=== PATIENT | female | born 1955 | race Caucasian/White ===

== ENCOUNTER 2017-02-08 08:52 | Observation (INO) | payer OTHER, SELFPAY ==
[2017-02-08 09:57] LABS: #Eosinphils 0.2 thou/uL (0.0-0.7); #Lymphocytes 1.1 thou/uL (1.20-3.40); #Monocytes 0.5 thou/uL (0.11-0.59); %Basophils 0.7 % (0.0-1.0); %Eosinophils 3.5 % (0.0-10.0); %Lymphocytes 16.1 % (21.0-51.0); Hematocrit 47.9 % (36.0-47.0); Mean Platelet Volume 8.3 fL (7.4-10.4); Red Blood Cell (RBC) Count 5.32 mill/uL (4.20-5.40); White Blood Cell (WBC) Count 6.9 thou/uL (4.8-10.8)
[2017-02-08 10:00] LABS: Bilirubin Negative (Negative); Blood, Urine Negative (Negative); Glucose, Urine (Dipstick) Negative (Negative); Ketone, Urine Negative (Negative); Nitrite Negative (Negative); Protein, Urine (Dipstick) Negative (Neg-Trace); Urobilinogen 0.2 mg/dL (0.2-1.0)
--- NOTE | 2017-02-08 10:47 | RAD ---
KUB AND UPRIGHT: Date: 02/08/17 HISTORY: Abdominal pain. History of umbilical hernia. FINDINGS: The bowel gas pattern appears nonobstructive. No signs of free air. Surgical clips are seen in the ri ght upper quadrant of the abdomen. PA CHEST: Heart size is borderline. The aorta is tortuous. The lungs are clear of infiltrates. Arthritic changes of the spine and mild scoliosis are noted. IMPRESSION: No acute findings. POS: LOVELY
[2017-02-08 11:45] LABS: ALT (SGPT) 15 U/L (8-55); AST (SGOT) 16 U/L (5-34); Alkaline Phosphatase 70 U/L (40-150); Anion Gap 12 mmol/L (10-20); BUN (Urea Nitrogen) 13 mg/dL (9.8-20.1); Bilirubin, Total 0.6 mg/dL (0.2-1.2); Calc. Creatinine Clearance 0 mL/min (70-130); Calcium 9.7 mg/dL (7.8-10.44); Carbon Dioxide 27 mmol/L (22-29); Chloride 105 mmol/L (98-107); Estimated GFR-MDRD Greater than 90; Globulin 2.8 g/dL (2.4-3.5); Lipase 34 U/L (8-78); Protein, Total 6.7 g/dL (6.0-8.3)
[2017-02-08] MEDS ORDERED: Bupivacaine/Epinephrine 0.25% 30 ML VIAL ONE (16:10)
[2017-02-08] MEDS ORDERED: Fentanyl 250 MCG/5 ML VIAL ONE (16:13)
[2017-02-08] MEDS ORDERED: CEFAZOLIN/Water 2 GM/20 ML SYRINGE ONE (16:26)
[2017-02-08] MEDS ORDERED: Ketorolac Tromethamine 30 MG/ML VIAL ONE (16:42)
[2017-02-08] MEDS ORDERED: Lidocaine 2% PF 10 ML AMP (For Epidural Use) ONE (16:42)
[2017-02-08] MEDS ORDERED: Ondansetron HCl/PF 4 MG/2 ML Vial ONE (16:42)
[2017-02-08] MEDS ORDERED: Propofol 200 MG/20 ML VIAL ONE (16:42)
[2017-02-08] MEDS ORDERED: Dexamethasone 20 MG/5 ML VIAL ONE (16:42)
[2017-02-08] MEDS ORDERED: Glycopyrrolate 0.2 MG/ML 5 ML SYRINGE ONE (16:42)
[2017-02-08] MEDS ORDERED: ePHEDrine/0.9% NaCl/PF SYRINGE 50 mg/10 ml ONE (16:42)
[2017-02-08] MEDS ORDERED: Fentanyl 100 MCG/2 ML VIAL ONE ×3 (18:47→20:14)
[2017-02-08] MEDS ORDERED: SUGAMMADEX SODIUM 500 MG/5 ML VIAL ONE (19:25)
[2017-02-08] MEDS ORDERED: D5 1/2 NS w/20 mEq KCL 1,000 ML ONE (20:15)
[2017-02-08] MEDS ORDERED: Promethazine HCl 25 MG/ML VIAL IM PRN ×2 (20:54→21:08)
[2017-02-08] MEDS ORDERED: Promethazine HCl 25 MG/ML VIAL SLOW IVP PRN (20:54)
[2017-02-08] MEDS ORDERED: Ondansetron HCl/PF 4 MG/2 ML Vial IVP PRN ×2 (20:54→21:08)
[2017-02-08] MEDS ORDERED: Ketorolac Tromethamine 30 MG/ML VIAL IVP PRN (21:08)
[2017-02-08] MEDS ORDERED: D5 1/2 NS w/20 mEq KCL 1,000 ML IV SCH (21:08)
[2017-02-08] MEDS ORDERED: hydrALAZINE 20 MG/ML VIAL SLOW IVP PRN (21:08)
[2017-02-08] MEDS ORDERED: Dextrose 5% in Water 1,000 ML IV PRN (21:08)
[2017-02-08] MEDS ORDERED: HYDROcodone/Acetaminophen 10/325 mg Tablet PO PRN (21:08)
[2017-02-08] MEDS ORDERED: Morphine 4 MG/ML VIAL SLOW IVP PRN ×2 (21:08)
[2017-02-08] MEDS ORDERED: Dextrose 50% Abboject 50 ML SYRINGE SLOW IVP PRN (21:08)
[2017-02-08] MEDS: Famotidine/PF 20 mg/2ml Vial SLOW IVP SCH (22:04)
[2017-02-08 23:39] VITALS: BMI 46.7
[2017-02-09] MEDS ORDERED: Lisinopril 20 MG TAB PO SCH ×2 (00:01→21:00)
[2017-02-09] MEDS ORDERED: traZODone HCl 50 MG TAB PO PRN (00:11)
[2017-02-09] MEDS: HYDROcodone/Acetaminophen 10/325 mg Tablet PO PRN ×2 (03:09→12:43)
[2017-02-09 05:08] LABS: #Lymphocytes 0.6 thou/uL (1.20-3.40); #Monocytes 0.3 thou/uL (0.11-0.59); #Neutrophils 10.1 thou/uL (1.40-6.50); %Eosinophils 0.2 % (0.0-10.0); %Lymphocytes 5.1 % (21.0-51.0); Hematocrit 47.3 % (36.0-47.0); Mean Platelet Volume 8.3 fL (7.4-10.4)
[2017-02-09 05:14] LABS: Anion Gap 12 mmol/L (10-20); BUN (Urea Nitrogen) 11 mg/dL (9.8-20.1); Calc. Creatinine Clearance 153 mL/min (70-130); Calcium 9.4 mg/dL (7.8-10.44); Carbon Dioxide 27 mmol/L (22-29); Chloride 104 mmol/L (98-107); Estimated GFR-MDRD Greater than 90
[2017-02-09] MEDS: Famotidine/PF 20 mg/2ml Vial SLOW IVP SCH (08:21)
[2017-02-09] MEDS ORDERED: FLUoxetine HCl 20 MG CAP PO SCH (09:00)
[2017-02-09] MEDS ORDERED: Enoxaparin Sodium 40 MG/0.4 ML SYRINGE SC SCH (09:00)
[2017-02-09 12:49] VITALS: BP 124/82; TEMP 98.1
[2017-02-09] MEDS ORDERED: Famotidine 20 MG TAB PO SCH (21:00)
--- NOTE | 2017-02-11 11:22 | DIS ---
DATE OF ADMISSION: 02/08/2017 DATE OF DISCHARGE: 02/09/2017 ADMIT DIAGNOSIS: Incarcerated incisional hernia. DISCHARGE DIAGNOSIS: Incarcerated incisional hernia. PROCEDURES: Laparoscopic Da Ronaldo incisional hernia repair with mesh by Dr. Garrett without complica tion. CONDITION AT DISCHARGE: Improved. STAFF: Dr. Ramón Garrett. HOSPITAL COURSE: See hospital chart for details of hospitalization. The patient will follow up with me in 2 weeks.
--- NOTE | 2017-02-11 11:22 | OP ---
DATE OF PROCEDURE: 03/07/2017 PREOPERATIVE DIAGNOSIS: Incarcerated incisional hernia. POSTOPERATIVE DIAGNOSIS: Incarcerated incisional hernia. PROCEDURE: Laparoscopic da Ronaldo assisted incisional hernia repair with mesh. SURGEON: Ramón Garrett M.D. ANESTHESIA: General. ESTIMATED BLOOD LOSS: Minimal. COMPLICATIONS: None. FINDINGS: Significant inflammatory change and adhesions to the small bowel to the hernia sac. TECHNIQUE: The patient was taken to the operating room and laid supine on the operating table. Afte r general anesthetic was obtained, the abdomen was prepped and draped in a sterile fashion. Left sub costal 12 mm Ethicon trocar was placed without injury and high-flow pneumoperitoneum was obtained. L eft and right abdominal 8 mm robot trocars were placed. All ports were docked to the robot. Surgeon goes to the console. All the posterior abdominal wall adhesions were taken down sharply using sciss ors with the robot. The patient's small bowel was intimately associated with the hernia sac. Meticu lous dissection was required to take all the small bowel out of the hernia sac back down into the abd ominal cavity. No injuries were made to the small bowel. One area of the deserosalization was overs ewn using 0 Vicryl suture robotic. There were multiple small defects that were all sutured together and closed primarily using a running #1 V-Loc suture. A 10 x 12 piece of mesh was brought into the s terile field, rolled and placed in the abdominal cavity held up to the posterior abdominal wall using a needle from the V-Loc suture. The nonadherent barrier side was placed towards the abdominal visce ra. A 2-0 Stratafix bidirectional was then used to sew the mesh circumferentially all the way around to the posterior fascia. This completely closed all defects with good overlap. All needles were re moved from the abdomen. All port sites were infiltrated using local anesthetic. All ports were mark celia under camera visualization without bleeding. Pneumoperitoneum was let down. Vicryl suture had b een used to close the fascial defect laparoscopic with subcostal 12-mm trocar site. All incisions we re irrigated and closed using 4-0 Monocryl and Dermabond. The patient was en route to recovery in st able condition. All instrument counts, needle counts, and lap counts were correct.
--- NOTE | 2017-03-02 15:32 | EKG ---
Test Reason : Blood Pressure : / mmHG Vent. Rate : 070 BPM Atrial Rate : 070 BPM P-R Int : 150 ms QRS Dur : 090 ms QT Int : 412 ms P-R-T Axes : 045 -13 002 degrees QTc Int : 444 ms Normal sinus rhythm Minimal voltage criteria for LVH, may be normal variant Borderline ECG Confirmed by MANAN PANDA D.O. ([id number]), scientific editor MARY ADDISON ([id number] on 03/02/2017 3:32:20 PM Referred By: Confirmed By:MANAN PANDA D.O.
== END 2017-02-09 14:18 | disposition home or self-care (01) ==
LOC: ERS 08:52 → SURG B 11:57 → SDC/OP 18:56 → SURG B 20:47
PROVIDERS: ADMIT Surgery; ATTEND Surgery
PROC: 0WUF4JZ Supplement Abdominal Wall with Synthetic Substitute, Percutaneous Endoscopic Approach (ICD-10-PCS; principal; 2017-02-09)
DX: K43.0 Incisional hernia with obstruction, without gangrene (principal); M19.90 Unspecified osteoarthritis, unspecified site; I10 Essential (primary) hypertension; F32.9 Major depressive disorder, single episode, unspecified; Z79.899 Other long term (current) drug therapy; Z91.040 Latex allergy status; Z90.49 Acquired absence of other specified parts of digestive tract; Z98.890 Other specified postprocedural states
CPT/HCPCS: 36415; 74022; 80048; 80053; 81003; 83690; 85025; 93005; 96361; 96372; 96374; 96375; 96376; C1781; G0378; J1100; J1650; J1885; J2001; J2405; J2704; J3010; S0028

== ENCOUNTER 2021-10-03 13:33 | Outpatient (CLI) | payer OTHER | END 2021-10-03 13:34 | disposition home or self-care (01) | LOC: BICMAMMO 13:33 | PROVIDERS: ATTEND Family Medicine | DX: Z12.31 Encounter for screening mammogram for malignant neoplasm of breast (principal) | CPT/HCPCS: 77063; 77067 ==